=== PATIENT | female | born 1980 | race African-American/Black ===

== ENCOUNTER 2018-12-20 18:36 | Observation (INO) ==
[2018-12-20] MEDS ORDERED: ASPIRIN 325 MG TABLET PO STA (20:07)
[2018-12-20] MEDS ORDERED: MORPHINE 4 MG/1 ML VIAL IV STA (20:07)
[2018-12-20] MEDS ORDERED: SODIUM CHLORIDE 0.9% 500 ML IV STA (20:07)
[2018-12-20] MEDS ORDERED: NITROGLYCERIN 2% OINT 1 INCH/GM PACK TOP STA (20:07)
[2018-12-20] MEDS ORDERED: ONDANSETRON 4 MG/2 ML VIAL IV STA (20:07)
[2018-12-20 20:37] LABS: Basophils # 0.1 10*3/uL (0.0-0.2); Basophils % 0.7 % (0.0-0.8); Eosinophils # 0.3 10*3/uL (0.0-0.87); Hematocrit 34.6 VOL% (35.7-47.0); Hemoglobin 11.1 GM/DL (12.0-16.0); Immature Granulocytes % 0.4 %; Immature Granulocytes Absolute 0.03 #; Lymphocytes # 3.1 10*3/uL (1.4-4.0); Mean Corpuscular HGB Conc 32.1 GM/DL (32-36); Mean Corpuscular Volume 95.3 FL (87-102); Mean Platelet Volume 10.2 FL (9.6-12.0); Neutrophils % 53.9 % (38.7-73.9); Platelet Count 232 T/CUMM (130-400); Red Blood Count 3.63 MC/CUMM (3.8-5.5); Red Cell Distribution Width 13.1 % (9.3-17.3); White Blood Count 8.6 T/CUMM (4-12)
[2018-12-20 20:46] LABS: Apearance,Urine CLEAR (Clear); Barbiturates Screen,Urine Negative (Negative); Benzodiazepines Screen,Urine Negative (Negative); Bilirubin,Urine Negative (Negative); Blood, Urine Small mg/dL (Negative); Cannabinoid Screen,Urine Negative (Negative); Glucose,Urine (UA) Negative (Negative); Hyaline Casts,Urine 3 /LPF (0-3); Ketones,Urine 5 mg/dL (Negative); Mucus,Urine Occasional /LPF (Occasional); Nitrite,Urine Negative (Negative); Opiate Screen,Urine Negative (Negative); Phencyclidine Screen,Urine Negative (Negative); Protein,Urine Negative; RBC,Urine 3 /HPF (0-4); Squamous Epithelial Cell,Urine Occasional /HPF (0-10); Urine Color Amber (Yellow); Urine Specific Gravity 1.033 (1.001-1.035); Urine Urobilinogen < 2.0 EU/DL (0.2-1.0); WBC,Urine 4 /HPF (0-6)
[2018-12-20 20:47] LABS: PT Patient Result 10.7 SECS
[2018-12-20 21:00] LABS: Troponin I < 0.015 NG/ML (0.00-0.045)
[2018-12-20 21:01] LABS: Albumin 3.9 G/DL (3.4-5.0); Bilirubin,Total 0.5 MG/DL (0.2-1.0); Calcium 8.8 MG/DL (8.5-10.1); Total Protein 7.6 G/DL (6.4-8.3)
[2018-12-20] MEDS ORDERED: ONDANSETRON 4 MG/2 ML VIAL IV PRN (22:31)
[2018-12-20] MEDS ORDERED: ZALEPLON 5 MG CAPSULE PO PRN (22:31)
[2018-12-21 01:28] LABS: Risk Ratio 1.82; VLDL CHOLESTEROL 12.2 MG/DL
[2018-12-21] MEDS ORDERED: NITROGLYCERIN 2% OINT 1 INCH/GM PACK TOP SCH (03:00)
[2018-12-21] MEDS ORDERED: ASPIRIN EC 325 MG TABLET PO SCH (09:00)
[2018-12-21] MEDS ORDERED: ACETAMINOPHEN 325 MG TABLET PO ONE (09:06)
[2018-12-21] MEDS ORDERED: PANTOPRAZOLE 20 MG TABLET PO SCH (09:11)
[2018-12-21 17:38] VITALS: BP 102/56
== END 2018-12-21 17:50 | disposition home or self-care (01) ==
LOC: N.ED 18:36 → N.EDINP 18:36 → N.4E 22:58
PROVIDERS: ADMIT Internal Medicine; ATTEND Internal Medicine